=== PATIENT | female | born 1990 | race Caucasian/White ===

== ENCOUNTER 2017-08-16 09:31 | Emergency (ER) | payer OTHER ==
[~2017-08-16] VITALS: Ht 162.6 cm; Wt 47.6 kg
[~2017-08-16 09:31] MED LIST: IMODIUM A-D2 MG PO; PEPCID40 MG PO; PHENERGAN25 MG PO
== END 2017-08-16 13:23 | disposition home or self-care (01) ==
LOC: ER 09:31
DX: B34.9 Viral infection, unspecified (principal); R50.9 Fever, unspecified

== ENCOUNTER 2021-02-23 09:00 | Outpatient (CLI) | payer OTHER | END 2021-02-23 09:30 | disposition home or self-care (01) | LOC: PPH VACUNA 09:00 | PROVIDERS: ATTEND Emergency Medicine Pediatric Emergency Medicine | DX: Z23 Encounter for immunization (principal) ==